=== PATIENT | female | born 1970 | race Hispanic/Latino ===

== ENCOUNTER 2019-03-12 10:08 | Outpatient (CLI) | payer SELFPAY ==
--- NOTE | 2019-03-12 10:44 | RAD ---
Exam:3 views right wrist HISTORY: Pain x3 COMPARISON: None FINDINGS: Intercarpal and radiocarpal joint spaces are preserved. No fracture. No cortical irregulari ty or periosteal reaction. IMPRESSION: Unremarkable 3 views right wrist
--- NOTE | 2019-03-12 10:45 | RAD ---
Exam:4 views right elbow HISTORY: Pain COMPARISON: None FINDINGS: Joint spaces are preserved. No joint effusion. No fracture. No malalignment. IMPRESSION: No fracture.
== END 2019-03-12 10:09 | disposition home or self-care (01) ==
LOC: BICRAD 10:08
PROVIDERS: ATTEND Physician Assistant
DX: M25.531 Pain in right wrist (principal); M25.521 Pain in right elbow